=== PATIENT | male | born 1985 | race Caucasian/White ===

== ENCOUNTER → 2020-01-20 15:40 | Outpatient (BNVA) | payer OTHER, SELFPAY | PROVIDERS: Visit Provider Internal Medicine | DX: K92.1 Melena (principal); R76.8 Other specified abnormal immunological findings in serum; B19.20 Unspecified viral hepatitis C without hepatic coma; B18.2 Chronic viral hepatitis C; Z20.828 Contact with and (suspected) exposure to other viral communicable diseases; Z11.59 Encounter for screening for other viral diseases | CPT/HCPCS: 80053; 82105; 85025; 87522; 87635 ==

== ENCOUNTER 2020-01-23 08:23 | Day surgery (SDC) | payer SELFPAY ==
[2020-01-22 08:01] VITALS: BMI 23.7
[2020-01-23 08:48] VITALS: BP 135/78; PULSE 64; RESP 18; TEMP 36.6; O2SAT 99
[2020-01-23] MEDS: sodium chloride 0.9% 1,000 ML 30 ML IV (08:58)
--- NOTE | 2020-01-23 09:26 | ANES.PREANE2 ---
Pre-Anesthetic Assessment Pre-Anesthetic Assessment: Height/Weight: Height 1.73 m Weight 70.76 kg Temp Pulse Resp BP Pulse Ox 97.8 F 64 18 135/78 99 01/23/20 08:48 01/23/20 08:48 01/23/20 08:48 01/23/20 08:48 01/23/20 08:48 Proposed Procedure: Operation Date: 01/23/20 09:30 Proposed Procedures p EGD 68460 k92.1(Not Applicable) - Allan Jj MD Was Beta Christian taken within 24 hours: N/A Last intake: Intake Last Liquid Date 01/22/20 Last Liquid Time 23:30 Last Solid Date 01/22/20 Last Solid Time 20:00 Social: Social History: Alcohol and Tobacco (Smokes Marijuana routinely ) Exam: Pre-Anes Outpt Exam: alert, oriented x 3, clear to auscultation bilaterally and regular rate & rhythm Airway: Submandibular: WNL Cervical ROM: WNL MP: 2 Pulmonary: Pulmonary: None reported CV/HEM: CV/HEM: None reported : : None reported Hepatic: Hepatic: Hepatitis GI: GI: GERD Comments: Bloody stools and upper abdominal pain Metabolic: Metabolic: None reported Musc/skel: Musc/skel: None reported Neuropsych: Neuropsych: None reported Anesthetic Plan: ASA status: 2 Anesthesia: MAC Meds/Allergies Current Medications: Current Medications Generic Name Dose Route Start Last Admin Trade Name Freq PRN Reason Stop Dose Admin Sodium Chloride 1,000 mls @ 30 ml s/hr 01/23/20 08:45 01/23/20 08:58 Sodium Chloride 0.9% IV 01/24/20 08:44 30 mls/hr .Q24H BRENNAN Administration PFSH Anesthesia PFSH: Medical History (Updated 01/20/20 @ 14:44 by Allan Jj MD) Hepatitis C antibody positive in blood Melena Family History Denies family history of Anesthesia complication Bleeding disorder Social History (Updated 01/20/20 @ 13:56 by MOISES Patricia) Smoking and tobacco status: former smoker Alcohol intake: former Adopted: No Marital status: Single Number of children: 3 service: No History of recent travel: No Current gender identity: Male Data Anesthesia Cardiac Studies: No Data to Display
--- NOTE | 2020-01-23 09:44 | P.HPUD_ITS ---
Surgery/Procedure H&P Update DATE OF PROCEDURE: January 23, 2020 DATE H&P PERFORMED: 01/20/20 PLANNED PROCEDURE: Operation Date: 01/23/20 09:30 Proposed Procedures p [facility] 51868 k92.1(Not Applicable) - Allan Jj MD
--- NOTE | 2020-01-23 09:44 | W.PM.OPSUD ---
Surgery/Procedure H&P Update DATE OF PROCEDURE: January 23, 2020 DATE H&P PERFORMED: 01/20/20 PLANNED PROCEDURE: Operation Date: 01/23/20 09:30 Proposed Procedures p [facility] [id number] k92.1(Not Applicable) - Allan Jj MD
[2020-01-23 10:38] VITALS: BP 122/73; PULSE 83; RESP 16; TEMP 36.2; O2SAT 91
[2020-01-23 10:45] VITALS: BP 137/82; PULSE 79; RESP 18; O2SAT 99
[2020-01-23] MEDS: cetylpyridinium Lozenge 1 EACH MUCOUS MEM (11:05)
--- NOTE | 2020-01-23 14:45 | ANE.PACU2 ---
Inpatient post-anesthesia follow up: Airway intact: Yes Vital signs: Temperature 97.1 F Pulse Rate 79 Respiratory Rate 18 Blood Pressure 137/82 Pulse Oximetry 99 Oxygen Delivery Me thod Room Air Oxygen Flow Rate 4 Fraction of Inspir ed Oxygen Hydration adequate: Yes Nausea and vomiting: No Pain level: 2 Mental status: Baseline
[2020-01-28 21:14] LABS: Hepatitis C Genotype RNA 1a
== END 2020-01-23 11:42 | disposition home or self-care (01) ==
PROVIDERS: Visit Provider Internal Medicine
PROC: 0DJ08ZZ Inspection of Upper Intestinal Tract, Via Natural or Artificial Opening Endoscopic (ICD-10-PCS; CPT 43235; principal; 2020-01-23 09:30)
DX: K92.1 Melena (principal); K25.7 Chronic gastric ulcer without hemorrhage or perforation; K44.9 Diaphragmatic hernia without obstruction or gangrene; Z87.891 Personal history of nicotine dependence; B19.20 Unspecified viral hepatitis C without hepatic coma; K21.9 Gastro-esophageal reflux disease without esophagitis
CPT/HCPCS: 12345; 43235; 87902; J2704; J7030

== ENCOUNTER 2020-02-12 09:34 | Outpatient (CLI) | payer OTHER, SELFPAY ==
--- NOTE | 2020-02-12 10:15 | US_ITS ---
WS: [id number] ULTRASOUND ABDOMEN LIMITED CLINICAL INFORMATION: R76.8 - Other specified abnormal immunological findings in serum COMPARISON: None. FINDINGS: Liver Size: Normal. Craniocaudal length: 15.1 cm. Echogenicity: Normal. Surface nodularity: None. Mass (size and location): None. Bile ducts Intrahepatic ducts: Normal. Common bile duct diameter: 0.3 cm. Gallbladder Normal. Gallstones: None. Gallbladder sludge: None. Gallbladder wall thickening: None. Pericholecystic fluid: None. Sonographic Hurtado sign: Absent. Pancreas Normal as visualized. Right kidney: Normal. Hydronephrosis: None. Size: 9.4 cm x 5.1 cm x 4.3 cm. Abdominal aorta and IVC Visualized portions are normal. Ascites: None. US/US liver [id number] IMPRESSION: Normal abdominal ultrasound
== END 2020-02-12 09:35 | disposition home or self-care (01) ==
LOC: RAD 09:37
PROVIDERS: Visit Provider Internal Medicine
DX: R76.8 Other specified abnormal immunological findings in serum (principal)
CPT/HCPCS: 76705

== ENCOUNTER → 2020-03-29 16:13 | Outpatient (BNVA) | payer OTHER, SELFPAY | PROVIDERS: Visit Provider Internal Medicine | DX: B18.2 Chronic viral hepatitis C (principal) | CPT/HCPCS: 87902 ==

== ENCOUNTER → 2020-05-25 11:57 | Outpatient (BNVA) | payer OTHER, SELFPAY | PROVIDERS: Visit Provider Internal Medicine | DX: B19.20 Unspecified viral hepatitis C without hepatic coma (principal) | CPT/HCPCS: 87522 ==

== ENCOUNTER → 2022-06-30 11:29 | Outpatient (BNVA) | payer OTHER, SELFPAY | PROVIDERS: PCP Nurse Practitioner Family; Visit Provider Nurse Practitioner | DX: N48.9 Disorder of penis, unspecified (principal); K29.70 Gastritis, unspecified, without bleeding; K21.9 Gastro-esophageal reflux disease without esophagitis | CPT/HCPCS: 86695; 86696 ==

== ENCOUNTER → 2022-08-15 15:09 | Outpatient (BNVA) | payer OTHER, SELFPAY | PROVIDERS: PCP Nurse Practitioner; Visit Provider Nurse Practitioner | DX: D72.829 Elevated white blood cell count, unspecified (principal); L25.5 Unspecified contact dermatitis due to plants, except food; R94.4 Abnormal results of kidney function studies | CPT/HCPCS: 85025 ==

== ENCOUNTER → 2022-08-18 10:53 | Outpatient (BNVA) | payer OTHER, SELFPAY | PROVIDERS: PCP Nurse Practitioner; Visit Provider Nurse Practitioner | DX: R94.4 Abnormal results of kidney function studies (principal) | CPT/HCPCS: 80053 ==